=== PATIENT | female | born 1995 | race Caucasian/White ===

== ENCOUNTER 2016-11-09 07:11 | Emergency (ER) | payer BC ==
[~2016-11-09] VITALS: Ht 167.6 cm; Wt 66.0 kg
[~2016-11-09 07:11] MED LIST: ADDE30CA PO; BACT800T5 PO; LORTA5 PO; SAFYTAB PO
[2016-11-09 07:18] VITALS: BP 114/58; PULSE 93; RESP 16; TEMP 97.7; O2SAT 97
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
[2016-11-09] MEDS ORDERED: AMPH1TAB47 PO (07:36)
[2016-11-09] MEDS ORDERED: DROS1TAB5 PO (07:36)
[2016-11-09] MEDS ORDERED: AMPH1TAB67 PO (07:36)
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
[2016-11-09] MEDS ORDERED: IBUP-1129 PO (08:28)
== END 2016-11-09 08:42 | disposition home or self-care (01) ==
LOC: PHED 07:11
DX: S40.012A Contusion of left shoulder, initial encounter (principal); W18.39XA Other fall on same level, initial encounter; Y93.89 Activity, other specified; Y92.9 Unspecified place or not applicable
CPT/HCPCS: 73030; 99283

== ENCOUNTER 2017-07-19 15:23 | Emergency (ER) | payer OTHER, BC ==
[~2017-07-19] VITALS: Ht 167.6 cm; Wt 70.0 kg
[~2017-07-19 15:23] MED LIST changes: -ADDE30CA PO; +AMPH1TAB47 PO; +AMPH1TAB67 PO; -BACT800T5 PO; +DROS1TAB5 PO; +IBUP-1129 PO; -LORTA5 PO; -SAFYTAB PO
[2017-07-19 15:33] VITALS: BP 149/102; PULSE 98; RESP 18; TEMP 98.4; O2SAT 99
[2017-07-19] MEDS ORDERED: METHOCARBAMOL 500 MG TAB PO ONE (17:45)
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
[2017-07-19] MEDS ORDERED: ACETAMINOPHEN/HYDROcodone 325 MG/5 MG TAB PO ONE (19:30)
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
[2017-07-19] MEDS ORDERED: IBUP1TAB7 PO (20:14)
[2017-07-19] MEDS ORDERED: ROBA500T PO (20:14)
[2017-07-19] MEDS ORDERED: NORC5TAB PO (20:14)
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
== END 2017-07-19 20:50 | disposition home or self-care (01) ==
LOC: NEPK 15:23
DX: S99.911A Unspecified injury of right ankle, initial encounter (principal); S16.1XXA Strain of muscle, fascia and tendon at neck level, initial encounter; G44.309 Post-traumatic headache, unspecified, not intractable; R42 Dizziness and giddiness; R53.82 Chronic fatigue, unspecified; E78.00 Pure hypercholesterolemia, unspecified; E78.1 Pure hyperglyceridemia; V43.52XA Car driver injured in collision with other type car in traffic accident, initial encounter; Z79.899 Other long term (current) drug therapy
CPT/HCPCS: 70450; 72125; 73610; 99284; E0113; L1906

== ENCOUNTER 2017-07-22 11:35 | Emergency (ER) | payer OTHER, BC ==
[~2017-07-22] VITALS: Ht 162.6 cm; Wt 69.1 kg
[~2017-07-22 11:35] MED LIST changes: +IBUP1TAB7 PO; +NORC5TAB PO; +ROBA500T PO
[2017-07-22 11:38] VITALS: BP 109/89; PULSE 136; RESP 16; TEMP 97.4; O2SAT 100
[2017-07-22] MEDS ORDERED: SAFYTAB PO (12:03)
[2017-07-22] MEDS ORDERED: DEXT37.52 PO (12:03)
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
[2017-07-22 13:38] LABS: BILIRUBIN, URINE NEG (NEG); BLOOD, URINE TRACE (NEG); GLUCOSE,URINE NEG (NEG); KETONE, URINE NEG (NEG); NITRITE,URINE NEG (NEG); PH, URINE 5.5 (5.0-8.5); URINE COLOR YELLOW (YELLW/STRAW); URINE LEUKOCYTE ESTERASE NEG (NEG)
[2017-07-22 13:45] LABS: AMORPHOUS SEDIMENT, URINE MOD; SQUAMOUS EPITHELIAL CELL URINE > 8 /hpf (0-5)
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
[2017-07-22] MEDS ORDERED: KETOROLAC TROMETHAMINE 60 MG/2 ML (IM) VIAL IM ONE (14:00)
== END 2017-07-22 14:19 | disposition home or self-care (01) ==
LOC: PHEFT 11:35
DX: S39.012A Strain of muscle, fascia and tendon of lower back, initial encounter (principal); S20.219A Contusion of unspecified front wall of thorax, initial encounter; I73.00 Raynaud's syndrome without gangrene; R53.82 Chronic fatigue, unspecified; E78.00 Pure hypercholesterolemia, unspecified; Z79.899 Other long term (current) drug therapy; Z88.5 Allergy status to narcotic agent; V49.40XA Driver injured in collision with unspecified motor vehicles in traffic accident, initial encounter
CPT/HCPCS: 71045; 72100; 81001; 84703; 96372; 99284; J1885